=== PATIENT | male | born 1940 | race Caucasian/White ===

== ENCOUNTER 2019-06-19 11:58 | Inpatient (IN) ==
[2019-06-13 16:36] LABS: Basophils # (Auto) 0 K/mcL (0.0-0.3); Basophils % (Auto) 0.7 % (0.0-2.0); Eosinophils # (Auto) 0.1 K/mcL (0.0-0.7); Eosinophils % (Auto) 1.2 % (0.0-7.0); Granulocytes % (Auto) 69.3 % (38.0-78.0); Hematocrit 40.7 % (41.0-55.0); Hemoglobin 13.9 g/dL (13.5-16.5); Lymphocytes # (Auto) 1.2 K/mcL (1.5-4.8); Lymphocytes % (Auto) 21.7 % (15.5-49.0); Mean Cell Volume 98.3 fL (80.0-100.0); Mean Corpuscular HGB Conc 34.1 g/dL (31.0-36.0); Mean Platelet Volume 8.6 fL (7.4-10.4); Monocytes # (Auto) 0.4 K/mcL (0.1-0.9); Monocytes % (Auto) 7.1 % (1.0-12.0); Platelet Count 209 K/mcL (140-440); RBC 4.15 M/mcL (4.50-5.90); Red Cell Distribution Width 13.1 % (11.5-14.5); WBC 5.5 K/mcL (4.5-11.0)
[2019-06-13 16:41] LABS: Blood Urea Nitrogen 19 mg/dl (8-23); Calcium 9.4 mg/dl (8.6-10.4); Carbon Dioxide 29 mmol/L (22-30); Chloride 99 mmol/L (96-108); Glomerular Filtration Rate 72; Glucose 92 mg/dL (70-105)
[2019-06-14 12:31] LABS: Appearance,Urine CLEAR; Bacteria,Urine 0 /hpf (0); Bilirubin,Urine NEG (NEG); Calcium Oxalate Crystals,Urine FEW /hpf (0); Color,Urine YELLOW; Culture Indicated,Urine YES; Glucose,Urine (UA) NEGATIVE (NEG); Ketones,Urine NEG (NEG); Leukocyte Esterase,Urine 25 /uL (NEG); Mucus,Urine FEW /hpf (0); Nitrate,Urine NEG (NEG); Protein,Urine NEG (NEG); Specific Gravity,Urine 1.021 (1.000-1.035); Urine Blood NEG mg/dL (<0.03); Urine RBC 0 /hpf (0-1); Urine Squamous Epithelial Cell 1 /hpf (0-4); Urine WBC 22 /hpf (0-4)
[~2019-06-19 11:58] MED LIST: 0.9 % SODIUM CHLORIDE 9 ML, KETOROLAC 30 MG, ROPIVACAINE HCL/PF 49.5 ML, EPINEPHrine 0.... IJ SCH; ACETAMINOPHEN 500 MG TABLET PO SCH; CELECOXIB 200 MG CAPSULE PO SCH; PREGABALIN 75 MG CAPSULE PO SCH; ceFAZolin 2 GM in DEXTROSE 5% IN WATER 50 ML IV SCH; oxyCODONE 10 MG TAB.ER.12H PO SCH
[2019-06-19 12:52] LABS: Appearance,Urine CLEAR; Bacteria,Urine 0 /hpf (0); Bilirubin,Urine NEG (NEG); Color,Urine YELLOW; Culture Indicated,Urine YES; Glucose,Urine (UA) NEGATIVE (NEG); Ketones,Urine 5/TR mg/dL (NEG); Leukocyte Esterase,Urine 25 /uL (NEG); Mucus,Urine FEW /hpf (0); Nitrate,Urine NEG (NEG); Protein,Urine NEG (NEG); Specific Gravity,Urine 1.018 (1.000-1.035); Urine Blood 0.03 mg/dL (<0.03); Urine RBC 15 /hpf (0-1); Urine Squamous Epithelial Cell 0 /hpf (0-4); Urine WBC 25 /hpf (0-4); Urobilinogen,Urine NEG (NEG)
[2019-06-19] MEDS ORDERED: HYDROmorphone 2 MG/ML VIAL IV PRN (13:31)
[2019-06-19] MEDS ORDERED: POLYETHYLENE GLYCOL 3350 17 GM PACKET PO PRN (13:31)
[2019-06-19] MEDS ORDERED: BENZOCAINE/MENTHOL 1 LOZENGE PO PRN ×2 (13:31→16:12)
[2019-06-19] MEDS ORDERED: TRANEXAMIC ACID 1,000 MG/10 ML VIAL IV SCH (13:31)
[2019-06-19] MEDS ORDERED: MAGNESIUM HYDROXIDE 30 ML ORAL.SUSP PO PRN (13:31)
[2019-06-19] MEDS ORDERED: BISACODYL 10 MG SUPP.RECT PR PRN (13:31)
[2019-06-19] MEDS ORDERED: FLEETS ADULT ENEMA PR PRN (13:31)
[2019-06-19] MEDS ORDERED: oxyCODONE/APAP 5/325MG TABLET PO PRN (13:31)
[2019-06-19] MEDS ORDERED: NON FORMULARY MEDICATION 1 DOSE MISCELL (Acetaminophen [Acetaminophen Er] 650 MG) PO PRN (13:34)
[2019-06-19] MEDS ORDERED: 0.45 % SODIUM CHLORIDE 1,000 ML IV SCH (13:45)
[2019-06-19] MEDS ORDERED: GENTAMICIN SULFATE 800 MG/20 ML VIAL IR ONE (13:53)
[2019-06-19] MEDS ORDERED: DEXAMETHASONE 10 MG/ML VIAL IV ONE (15:10)
[2019-06-19] MEDS ORDERED: TRANEXAMIC ACID 1,000 MG/10 ML VIAL IV ONE (15:10)
[2019-06-19] MEDS ORDERED: MIDAZOLAM 5 MG/5 ML VIAL IV ONE (15:10)
[2019-06-19] MEDS ORDERED: ROPIVACAINE HCL/PF 20 ML VIAL IJ ONE (15:10)
[2019-06-19] MEDS ORDERED: LIDOCAINE HCL/PF 100 MG/5 ML SYRINGE IV ONE (15:10)
[2019-06-19] MEDS ORDERED: PROPOFOL 200 MG/20 ML VIAL IV ONE (15:10)
[2019-06-19] MEDS ORDERED: NALOXONE HCL 0.4 MG/ML VIAL IV PRN (16:12)
[2019-06-19] MEDS ORDERED: diphenhydrAMINE 50 MG/ML VIAL IV PRN (16:12)
[2019-06-19] MEDS ORDERED: fentaNYL 100 MCG/2 ML VIAL IV PRN (16:12)
[2019-06-19] MEDS ORDERED: LACTATED RINGERS 250 ML IV PRN (16:12)
[2019-06-19] MEDS ORDERED: ONDANSETRON 4 MG/2 ML VIAL IV PRN (16:12)
[2019-06-19] MEDS ORDERED: PROMETHAZINE 25 MG/ML VIAL IV PRN (16:12)
[2019-06-19] MEDS ORDERED: MEPERIDINE 25 MG/ML SYRINGE IV PRN (16:12)
[2019-06-19] MEDS ORDERED: FLUMAZENIL 0.1 MG/ML ML IV PRN (16:12)
[2019-06-19] MEDS ORDERED: IPRATROPIUM/ALBUTEROL 3 ML AMPUL.NEB NEB PRN (16:12)
[2019-06-19] MEDS ORDERED: LACTATED RINGERS 1,000 ML IV SCH (16:15)
--- NOTE | 2019-06-19 16:32 | Brief Operative Note ---
Date of procedure: 06/19/19 Pre-op diagnosis: Right knee djd severe Post-op diagnosis: same Procedure: Right total knee cemented Grafts/Implants: Yes Anesthesia: SHAINAA Surgeon: Panda Herring Rodding Anode Worker: Damon Vela Estimated blood loss (cc): 50 Tourniquet Time (Minutes): 40 Specimens Removed/Pathology: none sent Condition: stable Disposition: PACU
[2019-06-19] MEDS: LACTATED RINGERS 1,000 ML IV SCH (18:23)
--- NOTE | 2019-06-19 18:37 | XRay Report ---
CLINICAL INFORMATION: Post-Op Total Knee COMPARISON: None. FINDINGS: Total knee prostheses is anatomically aligned. No osseous abnormality. Soft tissue swelling seen as expected IMPRESSION: Negative Interpreted and Authenticated by: Tom Trevino 06/19/19
[2019-06-19] MEDS: KETOROLAC 15 MG/ML VIAL IV SCH ×2 (19:05→23:48)
[2019-06-19] MEDS: 0.9 % SODIUM CHLORIDE 10 ML SYRINGE IV SCH ×2 (19:06→22:31)
[2019-06-19] MEDS: SENNOSIDES 1 TABLET PO SCH (20:36)
[2019-06-19] MEDS: FINASTERIDE 5 MG TABLET PO SCH (20:36)
[2019-06-19] MEDS: ASPIRIN 325 MG ENTERIC COATED TABLET PO SCH (20:36)
[2019-06-19] MEDS: DOCUSATE SODIUM 100 MG CAPSULE PO SCH (20:36)
[2019-06-19] MEDS: FERROUS SULFATE 325 MG TABLET PO SCH (20:36)
[2019-06-19] MEDS: CARBIDOPA/LEVODOPA 25/100 TABLET PO SCH (20:37)
[2019-06-19] MEDS: SIMVASTATIN 40 MG TABLET PO SCH (20:37)
[2019-06-19] MEDS ORDERED: SENNOSIDES 50 MG PO SCH (21:00)
[2019-06-19] MEDS ORDERED: TEMAZEPAM 15 MG CAPSULE PO PRN (21:00)
[2019-06-19] MEDS: ceFAZolin 1 GM VIAL IV SCH (22:31)
[2019-06-20] MEDS: LACTATED RINGERS 1,000 ML IV SCH (00:01)
[2019-06-20] MEDS: 0.9 % SODIUM CHLORIDE 10 ML SYRINGE IV SCH ×2 (04:01→18:20)
[2019-06-20] MEDS: KETOROLAC 15 MG/ML VIAL IV SCH ×3 (05:25→18:20)
[2019-06-20] MEDS: ceFAZolin 1 GM VIAL IV SCH (05:26)
[2019-06-20] MEDS: OMEPRAZOLE 20 MG CAPSULE PO SCH (07:07)
[2019-06-20] MEDS: ONDANSETRON 4 MG/2 ML VIAL IV PRN ×2 (07:08→11:37)
--- NOTE | 2019-06-20 07:20 | Orthopedic Progress Note ---
Subjective Patient information: Note initiated : 06/20/19 at 7:19 am Service Date, if different from initiated Date: [] Patient: Wing Armstrong 78 y/o M admitted on 06/19/19 for Right Total Knee Arthroplasty. Chief Complaint: [Pt is stable this morning on post operative day 1 without any significant concerns or complaints. Patients vital signs have remained stable. Patients dressing is dry and is grossly intact from a neurovascular and motor standpoint. Patients 10 point ROS is otherwise negative. ] Objective Vital signs: Vital Signs Temp Pulse Resp BP BP Pulse Ox 06/20/19 03:51 97.3 F 92 H 20 134/55 92 06/20/19 00:00 97.5 F 82 20 155/85 94 06/19/19 20:21 87 145/81 92 06/19/19 19:50 79 157/89 96 06/19/19 19:20 81 122/62 97 06/19/19 19:16 99 06/19/19 19:06 83 160/86 96 06/19/19 18:50 85 153/86 94 06/19/19 18:35 82 162/85 89 L 06/19/19 18:28 97.9 F 85 14 140/79 95 06/19/19 18:21 96.2 F L 78 20 154/78 93 06/19/19 18:18 87 15 156/81 95 06/19/19 18:08 87 14 160/78 95 06/19/19 17:58 88 14 161/86 95 06/19/19 17:48 89 14 145/84 93 06/19/19 17:38 87 14 128/59 94 06/19/19 17:28 90 16 134/68 95 06/19/19 17:18 82 14 146/80 95 06/19/19 17:08 80 14 140/95 96 06/19/19 16:58 80 14 146/72 97 06/19/19 16:53 74 13 128/84 100 06/19/19 16:48 83 11 L 154/65 100 06/19/19 16:43 70 14 142/66 100 06/19/19 16:38 97.2 F 70 15 142/69 100 06/19/19 12:15 97.4 F 77 18 166/85 98 Intake and Output 06/19/19 06/20/19 06/20/19 21:59 05:59 13:59 Intake Total 1750 1263 Output Total 636 1000 Balance 1114 263 Intake: IV 963 Lactated Ringers 1,000 ml @ 100 963 mls/hr IV .Q10H VIANNEY Rx#: [id number] Oral 300 IV - Manual Only 1750 Output: Urine Catheter Amount 550 775 Void Amount 75 225 # of times incontinent of urine 1 Estimated Blood Loss 10 Other: Urine Appearance Clear Clear Straight Clear Urine Color Pale Dark Yellow Straight Pale Urine Odor Normal Normal Weight 178 lb Intake & Output: Intake & Output 06/19/19 06/20/19 06/20/19 21:59 05:59 13:59 Intake Total 1750 1263 Output Total 636 1000 Balance 1114 263 Weight 178 lb Intake: IV 963 Lactated Ringers 1,000 ml @ 100 963 mls/hr IV .Q10H VIANNEY Rx#: [id number] Oral 300 IV - Manual Only 1750 Output: Urine Catheter Amount 550 775 Void Amount 75 225 # of times incontinent of urine 1 Estimated Blood Loss 10 Other: Urine Appearance Clear Clear Straight Clear Urine Color Pale Dark Yellow Straight Pale Urine Odor Normal Normal Incision: Yes healing Incision clean and dry: Yes Dressing: Yes clean Weight bearing status: full Neurological exam IM: Yes motor sensory intact, Yes neurovascular intact Extremities exam IM: Yes Foot pink and warm, Yes neurovascular intact - Labs CBC & BMP: 06/20/19 05:35 06/13/19 13:59 Labs: 06/20/19 06/13/19 05:35 13:59 Hgb 13.9 Hct 39.7 L 40.7 L Assessment and Plan (1) Hx of total knee arthroplasty The patient has been educated regarding dressing care, Physical Therapy recommendations, home exercises, restrictions, and follow up appointments. The patient has had all necessary DME prescribed. The patient has remained relatively stable during their hospital course. Leave Dermabond patch intact until followup Status: Acute (2) Hx of total knee arthroplasty Status: Acute
--- NOTE | 2019-06-20 07:23 | Discharge Summary ---
Ortho Discharge - TKA - Patient Instructions Diet: Regular Diet Activity: activity as tolerated Total Knee Protocol: For Total Knee: Start ROM BRI with stationary bike or rocking chair. Work on gaining full extension of knee. Posterior dislocation precautions provided. Hip abductor strengthening and gait training instructions provided. Apply Cryocuff as instructed. Dressing Care: May shower in 2 days - Problem Maintenance (1) Hx of total knee arthroplasty Status: Acute (2) Hx of total knee arthroplasty Status: Acute - Follow Up Plan Follow Up Appointments: Damon Vela PA-C [Physician Business Account Specialist] - 07/06/19 1:40 pm Disposition: Home, Self-Care Prognosis: Good Rehab Potential: Good I certify that the patient requires SNF services: No Overall status at discharge: patient is progressing back to baseline - Orders For Discharge Prescriptions: Docusate Sodium [Colace] 100 mg PO BID #60 cap Transmission Status: Pending to [address] Aspirin [Ecotrin] 325 mg PO BID #60 tab.ec Transmission Status: Pending to [address] oxyCODONE/APAP [Percocet 5-325 mg] 1 - 2 tab PO Q4HP PRN #75 tab PRN Reason: Pain Level 3-6 Prescription Printed
--- NOTE | 2019-06-20 08:17 | Operative Note ---
DATE OF OPERATION: 06/19/2019 PREOPERATIVE DIAGNOSIS: Right knee degenerative arthritis, severe. POSTOPERATIVE DIAGNOSIS: Right knee degenerative arthritis, severe. INDICATION: Right knee with severe arthritis by x-ray showing [id number] contact. The patient failed all conservative care which included Tylenol, anti-inflammatories, ibuprofen and Aleve, with prior steroid injections. The patient failed all these conservative measures and now has agreed to proceed. PROCEDURE: Right total knee arthroplasty with cemented components from [facility]. ANESTHESIA: General endotracheal anesthesia. SURGEON: Panda Herring MD SCOOP DRIVER: Damon Vela PA-C. This provider's expertise and technical skill were required throughout the case. The GUME assisted with preoperative coordination, intraoperative retraction, wound closure, dressing and splint application, as well as postoperative documentation and care coordination. BLOOD LOSS: 50 mL TOURNIQUET TIME: 40 minutes. SPECIMENS REMOVED AND SENT: None. CONDITION: Stable. DISPOSITION: To PACU. IV ANTIBIOTICS: The patient received preop antibiotics and tranexamic acid. DESCRIPTION OF PROCEDURE: The patient was brought to the operating room and put to sleep with general LMA anesthesia. Once asleep, the patient had the right knee sterilely prepped and draped in the usual sterile fashion. Ioban was placed over the skin. A timeout was performed confirming the operative site by initials, consent form and x-rays. We confirmed that antibiotics and tranexamic acid had been given and then we made a midline incision. A midvastus approach on the right knee was performed and exposed the joint. Intramedullary guide rods on the tibia and the femur were placed. We made our distal femoral cut and chamfer cuts on the femur, removing spurs as well as on the tibial surface. We removed the remnants of the meniscus and spurs posteriorly were also removed. At this point, we tapped into place a size 6 femur and size 5 tibial baseplate. These fit very nicely. Rotation was set and the polyethylene was used to tension the ligaments. We resurfaced the patella and the patella was very thick at 25 mm. This was also resurfaced. All the components were cemented into place. We kept the knee at 45 degrees and made sure all excess cement had risen removed. We then closed the midvastus approach with #1 Stratafix and the tourniquet had been deflated at 40 minutes. Skin was closed with 2-0 Vicryl and adhesive closure. The patient tolerated this well. Sterile bandage was applied. RBH:jermaine Job ID: [id number] Doc ID: [id number] Panda Herring MD
[2019-06-20] MEDS ORDERED: DOCUSATE SODIUM 100 MG CAPSULE PO SCH (09:00)
[2019-06-20] MEDS: ASPIRIN 325 MG ENTERIC COATED TABLET PO SCH ×2 (10:18→20:46)
[2019-06-20] MEDS: DOCUSATE SODIUM 100 MG CAPSULE PO SCH ×2 (10:19→20:46)
[2019-06-20] MEDS: CARBIDOPA/LEVODOPA 25/100 TABLET PO SCH ×3 (10:20→20:46)
[2019-06-20] MEDS: VERAPAMIL 120 MG TAB.XL.24H PO SCH (10:20)
[2019-06-20] MEDS: FERROUS SULFATE 325 MG TABLET PO SCH ×2 (13:08→20:46)
[2019-06-20] MEDS: ACETAMINOPHEN 325 MG TABLET PO PRN (18:20)
[2019-06-20] MEDS: SIMVASTATIN 40 MG TABLET PO SCH (20:46)
[2019-06-20] MEDS: FINASTERIDE 5 MG TABLET PO SCH (20:46)
[2019-06-20] MEDS: SENNOSIDES 1 TABLET PO SCH (20:46)
[2019-06-21] MEDS: KETOROLAC 15 MG/ML VIAL IV SCH ×2 (00:29→05:57)
[2019-06-21] MEDS: 0.9 % SODIUM CHLORIDE 10 ML SYRINGE IV SCH ×2 (00:30→06:00)
[2019-06-21] MEDS: ACETAMINOPHEN 325 MG TABLET PO PRN ×2 (00:36→05:57)
--- NOTE | 2019-06-21 06:55 | Orthopedic Progress Note ---
Subjective Patient information: Note initiated : 06/21/19 at 6:53 am Service Date, if different from initiated Date: [] Patient: Wing Armstrong 78 y/o M admitted on 06/19/19 for Right Total Knee Arthroplasty. Chief Complaint: [Right knee ain is 3 out of 5 and eating well] Objective Vital signs: Vital Signs Temp Pulse Resp BP Pulse Ox 06/21/19 04:43 98.6 F 94 H 12 158/91 90 06/20/19 23:17 90 06/20/19 23:14 97.8 F 89 12 158/83 90 06/20/19 19:44 97.9 F 82 14 140/76 91 06/20/19 16:00 91 06/20/19 15:29 98 F 94 H 14 145/82 91 06/20/19 12:00 98.2 F 88 12 145/83 91 06/20/19 07:41 94.4 F L 95 H 16 133/77 93 Intake and Output 06/20/19 06/21/19 06/21/19 21:59 05:59 13:59 Intake Total 400 475 Output Total 750 Balance 400 -275 Intake: Oral 400 475 Output: Void Amount 750 Other: Meal Dinner Percent of Meal Consumed 100% Urine Color Bright Yellow Dark Yellow Urine Odor Normal Normal Weight 177 lb 8 oz Intake & Output: Intake & Output 06/20/19 06/21/19 06/21/19 21:59 05:59 13:59 Intake Total 400 475 Output Total 750 Balance 400 -275 Weight 177 lb 8 oz Intake: Oral 400 475 Output: Void Amount 750 Other: Meal Dinner Percent of Meal Consumed 100% Urine Color Bright Yellow Dark Yellow Urine Odor Normal Normal Incision: Yes healing Incision clean and dry: Yes Dressing: Yes clean Weight bearing status: full Neurological exam IM: Yes oriented X3, Yes neurovascular intact Extremities exam IM: Yes joint swelling, Yes Foot pink and warm - Periperhal Pulses Peripheral pulses: 2+: dorsalis pedis (L), dorsalis pedis (R) - Labs CBC & BMP: 06/20/19 05:35 06/13/19 13:59 Labs: 06/20/19 06/13/19 05:35 13:59 Hgb 13.9 Hct 39.7 L 40.7 L
[2019-06-21] MEDS: OMEPRAZOLE 20 MG CAPSULE PO SCH (07:41)
[2019-06-21] MEDS: DOCUSATE SODIUM 100 MG CAPSULE PO SCH (08:55)
[2019-06-21] MEDS: CARBIDOPA/LEVODOPA 25/100 TABLET PO SCH (08:56)
[2019-06-21] MEDS: ASPIRIN 325 MG ENTERIC COATED TABLET PO SCH (08:56)
[2019-06-21] MEDS: VERAPAMIL 120 MG TAB.XL.24H PO SCH (08:56)
== END 2019-06-21 11:20 | disposition home or self-care (01) | DRG 470 ==
LOC: MEDSUR 11:58
PROVIDERS: ADMIT Orthopaedic Surgery; ATTEND Orthopaedic Surgery